=== PATIENT | male | born 1990 ===

== ENCOUNTER 2016-06-08 11:28 | Emergency (ER) | payer BC ==
[2016-06-08] MEDS ORDERED: Acetaminophen TAB* 325 MG PO ONE (11:45)
[2016-06-08] MEDS ORDERED: Ibuprofen TAB* 600 MG PO ONE (11:45)
--- NOTE | 2016-06-08 12:28 | UC ---
FLU HPI - HPI Summary HPI Summary: COUGH FEVER, HEADACHE SINCE YESTERDAY - History of Current Complaint Chief Complaint: UCGeneralIllness Stated Complaint: FEVER HEADACHE COUGH Time Seen by Provider: 06/08/16 11:45 Hx Obtained From: Patient, Family/Water Analyst Onset/Duration: Sudden Onset, Lasting Days, Still Present Severity Currently: Moderate Severity Initially: Moderate Associated Signs & Symptoms: Positive: F/C, Cough, Nasal Congestion, Headache - Allergy/Home Medications Allergies/Adverse Reactions: Allergies Allergy/AdvReac Type Severity Reaction Status Date / Time Amoxicillin Allergy Rash Verified 06/08/16 11:34 Home Medications: Home Medications Methylphenidate HCl [Ritalin LA] 1 cap PO DAILY 06/08/16 [History Confirmed ] [id number] [VICKS DAYQUIL/NYQUIL COLD (Liquid)] 30 ml PO Q8HR PRN 06/08/16 [History Confirmed 06/08/16] Propranolol TAB* [Inderal TAB*] 1 tab PO DAILY PRN 06/08/16 [History Confirmed 06/08/16] PMH/Surg Hx/FS Hx/Imm Hx Previously Healthy: Yes - Surgical History Surgical History: None - Family History Known Family History: Negative: Cardiac Disease, Respiratory Disease - Social History Occupation: Employed Part-time, Student Lives: With Family Alcohol Use: Weekly Substance Use Type: Marijuana Substance Use Comment - Amount & Last Used: 2 x week Smoking Status (MU): Never Smoked Tobacco - Immunization History Most Recent Influenza Vaccination: Not UTD Review of Systems Constitutional: Fever, Chills, Fatigue Skin: Negative Eyes: Negative Respiratory: Cough Cardiovascular: Negative Gastrointestinal: Negative Genitourinary: Negative Motor: Negative Musculoskeletal: Negative Neurological: Headache Psychological: Negative All Other Systems Reviewed And Are Negative: Yes Physical Exam Triage Information Reviewed: Yes Appearance: No Pain Distress, Well-Nourished, Ill-Appearing - MILD Vital Signs: Initial Vital Signs Temp 100.3 F 06/08/16 11:38 Pulse 68 06/08/16 11:38 Resp 16 06/08/16 11:38 BP 114/58 06/08/16 11:38 Pulse Ox 98 06/08/16 11:38 Vital Signs Reviewed: Yes Eye Exam: Normal ENT: Positive: Hearing grossly normal, Pharynx normal, TMs normal Dental Exam: Normal Neck exam: Normal Neck: Positive: Supple, Nontender, No Lymphadenopathy, Other: - NEGATIVE KERNIGS Respiratory Exam: Normal Respiratory: Positive: Chest non-tender, Lungs clear, Normal breath sounds, No respiratory distress, No accessory muscle use Cardiovascular Exam: Normal Cardiovascular: Positive: RRR, No Murmur, Pulses Normal Abdominal Exam: Normal Abdomen Description: Positive: Nontender, No Organomegaly Musculoskeletal Exam: Normal Musculoskeletal: Positive: Strength Intact, ROM Intact Neurological Exam: Normal Psychological Exam: Normal Psychological: Positive: Normal Response To Family Skin Exam: Normal Flu Course/Dx - Differential Dx/Diagnosis Differential Diagnosis/HQI/PQRI: Influenza, Upper Respiratory Infection Provider Diagnoses: UPPER RESPIRATORY INFECTION Discharge - Discharge Plan Condition: Stable Disposition: HOME Patient Education Materials: Upper Respiratory Infection (ED) Referrals: Sapna Oscar MD [Primary Care Provider] -
== END 2016-06-08 12:33 | disposition home or self-care (01) ==
LOC: UCCORT 11:28
DX: J06.9 Acute upper respiratory infection, unspecified (principal); Z88.1 Allergy status to other antibiotic agents; F12.90 Cannabis use, unspecified, uncomplicated
CPT/HCPCS: 87502; 99202; A9270-GY; G0463